=== PATIENT | male | born 1955 | race African-American/Black ===

== ENCOUNTER 2024-05-28 08:24 | Emergency (ER) | payer OTHER ==
[~2024-05-28] VITALS: Ht 182.9 cm; Wt 95.0 kg
[2024-05-28 08:26] VITALS: TEMP 37; O2SAT 99
[2024-05-28 09:43] LABS: BASOPHILS % 0.3 % (0.0-2.0); CHLORIDE 109 mEq/L (98-107); EOSINOPHILS % 0.7 % (0.0-5.0); HEMATOCRIT. 36.8 % (42.0-52.0); LYMPHOCYTES % 21.8 % (20.0-50.0); MEAN CORPUSCULAR HEMOGLOBIN 28.4 pg (28.0-32.0); MEAN CORPUSCULAR HGB CONC 32.7 g/dL (31.0-37.0); MEAN CORPUSCULAR VOLUME 86.9 fL (80.0-94.0); MEAN PLATELET VOLUME 8.9 fl (7.4-10.4); MONOCYTES % 9.8 % (2.0-8.0); NEUTROPHILS % 67.4 % (40.0-76.0); PLATELET 153 x1000/uL (130-400); POTASSIUM 3.8 mEq/L (3.5-5.1); RED BLOOD CELL COUNT 4.23 mill/uL (4.7-6.1); RED CELL DISTRIBUTION WIDTH 13.9 % (11.6-14.6); SODIUM 144 mEq/L (136-145); WHITE BLOOD COUNT 5.1 x1000/uL (4.5-11.0)
[2024-05-28 09:44] LABS: CALCIUM 9.5 mg/dL (8.7-10.4); CARBON DIOXIDE 32 mEq/L (21-32)
[2024-05-28 09:49] LABS: GLUCOSE 125 mg/dL (70-105); UREA NITROGEN BLOOD 16 mg/dL (9-23)
[2024-05-28 09:51] LABS: ALANINE AMINOTRANSFERASE 36 IU/L (10-49); ALBUMIN 3.5 g/dL (3.2-4.8); ASPARTATE AMINOTRANSFERASE 37 IU/L (<34); BILIRUBIN TOTAL 0.5 mg/dL (0.1-1.0); PROTEIN TOTAL 7.1 g/dL (6.0-8.3); TROPONIN I HIGH SENSITIVITY 9 ng/L (3.0-53)
[2024-05-28 14:04] VITALS: BP 131/72; PULSE 72; RESP 16; O2SAT 98
== END 2024-05-28 14:04 | disposition home or self-care (01) ==
LOC: ER 08:24
DX: R00.2 Palpitations (principal); I48.91 Unspecified atrial fibrillation; R03.0 Elevated blood-pressure reading, without diagnosis of hypertension; E78.00 Pure hypercholesterolemia, unspecified; Z79.01 Long term (current) use of anticoagulants
CPT/HCPCS: 36415; 71045; 80053; 83735; 84484; 85025; 99284; A4606